=== PATIENT | male | born 1945 | race Caucasian/White ===

== ENCOUNTER 2024-05-23 09:59 | Outpatient (REF) | payer MEDICARE, SELFPAY ==
--- NOTE | ~2024-05-23 | XR_ITS ---
EXAMINATION: XR LUMBAR SPINE CLINICAL INFORMATION: Spinal stenosis lumbar region with neurogenic claudication. COMPARISON: None available. TECHNIQUE: 4 views of the lumbosacral spine. FINDINGS: Levoscoliosis of the lumbar spine. Right total hip prosthesis minimally included in the [id number]. Grade 1 anterolisthesis of L4 on L5 with moderate loss of disc space height persists on flexion and extension views. Multilevel lumbar spondylosis with multilevel loss of disc space height most notable at L4-L5. There is a 0.8 cm density overlying the left renal shadow, possibly representing a renal calculus. A 0.4 cm similar density is seen just superior to the left iliac wing. Additional imaging with CT scan of the abdomen and pelvis could be considered. A 0.7 cm nodule overlies the partially imaged left lung base, possibly representing a pulmonary nodule. Dedicated views of the chest are recommended for further evaluation. XR/XR lumbar spine 4V min IMPRESSION: 1. Multilevel lumbar spondylosis most notable at L4-L5. 2. A 0.8 cm density overlying the left renal shadow, possibly representing a renal calculus. A 0.4 cm similar density is seen just superior to the left iliac wing. Additional imaging with CT scan of the abdomen and pelvis could be considered. 3. A 0.7 cm nodule overlies the partially imaged left lung base, possibly representing a pulmonary nodule. Dedicated views of the chest are recommended for further evaluation. This study was presented to me on June 03, 2024 for interpretation. [facility] staff will provide results to referring provider at this time. Electronically signed by: Cristina Cedeno MD 06/03/2024 12:13 PM [email or web address]
== END 2024-05-23 10:00 | disposition home or self-care (01) ==
LOC: HO.HOSX 09:59
PROVIDERS: Visit Provider Neurological Surgery
DX: M43.16 Spondylolisthesis, lumbar region (principal); M48.062 Spinal stenosis, lumbar region with neurogenic claudication
CPT/HCPCS: 72110; 99202

== ENCOUNTER 2024-05-23 09:59 | Outpatient (AMB) | payer MEDICARE, SELFPAY ==
--- NOTE | 2024-05-23 10:11 | A.SPINEOV_ITS ---
Vital Signs 05/23/24 10:12 Height 5 ft 2 in Weight 184 lb BMI 33.7 Intake Visit Reasons: low back pain/stenosis Intake Note: Mr. Ramos is here today c/o Low back pain that radiates to the right buttocks. Inspector Material Disposition Required: No Allergies No Known Allergies Allergy (Verified 05/23/24 10:12) Physical Exam Vital Signs: BMI result Body Mass Index 33.7 Assessment & Plan Assessment & Plan (1) Spondylolisthesis, lumbar region: Code(s): M43.16 - Spondylolisthesis, lumbar region Category: Medical Plan: Dear colleague Thank you for referring Colby Ramos to the office today with a chief complaint of back pain and right buttock pain. HPI: This 78-year-old male is known with spinal stenosis in 2016. He saw a neurosurgeon at [facility] want to perform surgery but he decided to try conservative management as long as possible. He did physical therapy and core strengthening which helped him over the years however in the last year and especially the last 3 months he is having more and more problems. Specifically, he has severe pain in his right buttock that comes with walking and standing and improves when he sits down. Leaning forward also improves the symptoms. In addition, he still has the back pain but this would not be a reason to visit me. It is the radicular component that is the reason for his clinical visit. He denies left leg pain. He denies numbness or weakness. He has currently in physical therapy but it does not alleviate his symptoms. The following conservative treatment options were tried without success antiinflammatories, tylenol, physical therapy. PMH: Right hip replacement July 2023 Medications: Simvastatin, omeprazole, meloxicam for pain control Allergies: None Social history: . Nonsmoker Physical Exam: Pleasant male. He walks in a flexed position. Straight leg raise increases the pain in his right buttock. No motor or sensory deficits. Radiological Studies: MRI done at [facility] shows a grade 1-2 L4-5 spondylolisthesis and associated severe central spinal stenosis. Dynamic x-rays obtained today shows again the spondylolisthesis and a mild degenerative scoliosis but no signs of instability. Impression/Plan: We had an extensive discussion about surgical interventions. He made it clear that he wants to avoid a fusion surgery. Therefore I offered him a L4-5 laminotomy, right-sided approach to decompress the central canal and to address his neurogenic claudication symptoms. He is aware that this will not help with the back pain. He wants to reserve a 2nd option that we discuss which is a minimally invasive oblique lumbar interbody fusion L4-5 to correct his spondylolisthesis to address his back pain and the neurogenic claudication. He is scheduled for August 14 to undergo the laminotomy. He is getting a kidney stone removed and had preoperative clearance done at [facility] and he will fax over the results. Thank you for allowing me to participate in your patients care. total time spent was 60 minutes in counseling ,coordination of plan, personal review of imaging, surgical decision making and subsequent plan Gerry Kennedy MD, PhD Spine Fellowship Trained Neurosurgeon Director, [facility] (2) Lumbar stenosis with neurogenic claudication: Code(s): M48.062 - Spinal stenosis, lumbar region with neurogenic claudication Category: Medical Plan: d Plan d Orders: Orders XR lumbar spine 4V min Today M43.16 - Spondylolisthesis, lumbar region, M48.062 - Spinal stenosis, lumbar region with neurogenic claudication Coding Level of Care Code New Pt Level 5 (65993) Diagnoses Spondylolisthesis, lumbar region M43.16 Lumbar stenosis with neurogenic claudication M48.062
[2024-05-23 10:12] VITALS: BMI 33.7
== END 2024-05-23 11:38 | disposition home or self-care (01) ==
PROVIDERS: Visit Provider Neurological Surgery
DX: M48.062 Spinal stenosis, lumbar region with neurogenic claudication (principal); M43.16 Spondylolisthesis, lumbar region
CPT/HCPCS: 99205